=== PATIENT | male | born 1990 | race Caucasian/White ===

== ENCOUNTER 2017-02-15 22:57 | Emergency (ER) | payer OTHER ==
[2017-02-15 23:16] VITALS: BP 148/88
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
--- NOTE | 2017-02-16 13:25 | US ---
EXAM DATE: 02/15/17 PATIENT'S AGE: 26 Patient: AMBER HERNANDEZ Facility: [place], [place] Site . Site : 1990 Study: US Extremity Right [id number]/15/2017 11:59:17 PM Ordering Physician: Ramona Kang Final Report: INDICATION: Right lower leg pain and swelling. TECHNIQUE: Ultrasound venous duplex lower right extremity. Compression venous exam was performed using posey-scale, color Doppler, and spectral Doppler imaging. COMPARISON: None. FINDINGS: Sonographic imaging demonstrates the right common femoral, deep femoral, superficial femoral, popliteal, posterior tibial and greater saphenous and the contralateral left common femoral veins to be fully compressible with normal color Doppler blood flow. IMPRESSION: No sign of deep venous thrombosis. Dictated by Gilles Parkinson MD @ 02/16/2017 12:15:47 AM Dictated by: Gilles Parkinson MD @ 02/16/2017 00:15:53 (Electronic Signature) Report Signed by Proxy. ITZEL
== END 2017-02-16 01:44 | disposition home or self-care (01) ==
LOC: MW.ED 22:57
DX: S80.11XA Contusion of right lower leg, initial encounter (principal); F17.210 Nicotine dependence, cigarettes, uncomplicated; Z90.49 Acquired absence of other specified parts of digestive tract; V89.2XXA Person injured in unspecified motor-vehicle accident, traffic, initial encounter; Y92.410 Unspecified street and highway as the place of occurrence of the external cause
CPT/HCPCS: 73590-26-RT; 73590-RT; 93971-26-RT; 93971-RT; 99282; 99284-25

== ENCOUNTER 2017-03-07 19:10 | Emergency (ER) | payer OTHER ==
--- NOTE | 2017-03-07 19:55 | EDM.PDOC ---
ED HPI GENERAL MEDICAL PROBLEM - General Chief Complaint: Gastrointestinal Problem Stated Complaint: BLOOD IN STOOL Time Seen by Provider: 03/07/17 19:55 Source of Information: Reports: Patient History Limitations: Reports: No Limitations - History of Present Illness INITIAL COMMENTS - FREE TEXT/NARRATIVE: HISTORY AND PHYSICAL: History of present illness: Patient is a 26-year-old male who presents to the emergency room today with complaints of generalized abdominal pain, diarrhea, blood "streaks mixed" in with his stools 6 days. Patient denies any fever chills. Denies any chest pain or shortness of breath. Review of systems: As per history of present illness and below otherwise all systems reviewed and negative. Past medical history: As per history of present illness and as reviewed below otherwise noncontributory. Surgical history: As per history of present illness and as reviewed below otherwise noncontributory. Social history: No reported history of drug or alcohol abuse. Family history: As per history of present illness and as reviewed below otherwise noncontributory. Physical exam: HEENT: Atraumatic, normocephalic, pupils reactive, negative for conjunctival pallor or scleral icterus, mucous membranes moist, throat clear, neck supple, nontender, trachea midline. Lungs: Clear to auscultation, breath sounds equal bilaterally, chest nontender. Heart: S1S2, regular rate and rhythm Abdomen: Soft, nondistended, nontender. Negative for masses or hepatosplenomegaly. Negative for costovertebral tenderness. Pelvis: Stable nontender. Genitourinary: Deferred. Rectal: Exam was conducted with a visual display manager. No external hemorrhoids noted. Negative guiac screening Extremities: Atraumatic, negative for cords or calf pain. Neurovascular unremarkable. Neuro: Awake, alert, oriented. Cranial nerves II through XII unremarkable. Cerebellum unremarkable. Motor and sensory unremarkable throughout. Exam nonfocal. Diagnostics: CBC, CMP, Abdominal/Pelvis CT Therapeutics: [] Impression: Hemorrhoids, abdominal pain Definitive disposition and diagnosis as appropriate pending reevaluation and review of above. Duration: Day(s): (6) abdomen Pain Score (Numeric/FACES): 2 - Related Data Allergies Allergy/AdvReac Type Severity Reaction Status Date / Time No Known Allergies Allergy Verified 03/07/17 19:49 Home Meds: Home Meds . [No Known Home Meds] 02/15/17 [History] Past Medical History HEENT History: Reports: None Cardiovascular History: Reports: None Respiratory History: Reports: None Genitourinary History: Reports: None Musculoskeletal History: Reports: None Neurological History: Reports: None Psychiatric History: Reports: None Endocrine/Metabolic History: Reports: None Hematologic History: Reports: None Oncologic (Cancer) History: Reports: None Dermatologic History: Reports: None - Infectious Disease History Infectious Disease History: Reports: None - Past Surgical History GI Surgical History: Reports: Appendectomy Male Surgical History: Reports: None Social & Family History - Family History Family Medical History: Noncontributory - Tobacco Use Smoking Status *Q: Current Some Day Smoker Years of Tobacco use: 4 Packs/Tins Daily: 0.1 - Recreational Drug Use Recreational Drug Use: No ED ROS GENERAL - Review of Systems Review Of Systems: See Below ED EXAM, GI/ABD - Physical Exam Exam: See Below (See dictation) Course - Vital Signs Last Recorded V/S: Last Vital Signs Temp 36.5 C 03/07/17 19:10 Pulse 64 03/07/17 19:10 Resp 16 03/07/17 19:10 BP 142/85 H 03/07/17 19:10 Pulse Ox 98 03/07/17 19:10 - Orders/Labs/Meds Orders: Active Orders 24 hr Category Date Time Status Abdomen Pelvis wo Cont [CT] Stat Exams 03/07/17 19:54 Taken Labs: Laboratory Tests 03/07/17 03/07/17 Range/Units 20:00 20:00 WBC 6.77 (4.0-11.0) K/uL RBC 4.94 (4.50-5.90) M/uL Hgb 14.7 (13.0-17.0) g/dL Hct 43.9 (38.0-50.0) % MCV 88.9 (80.0-98.0) fL MCH 29.8 (27.0-32.0) pg MCHC 33.5 (31.0-37.0) g/dL RDW Std Deviation 43.0 (28.0-62.0) fl RDW Coeff of Iram 13 (11.0-15.0) % Plt Count 278 (150-400) K/uL MPV 10.00 (7.40-12.00) fL Neut % (Auto) 56.6 (48.0-80.0) % Lymph % (Auto) 26.4 (16.0-40.0) % Chase % (Auto) 11.1 (0.0-15.0) % Eos % (Auto) 4.9 (0.0-7.0) % Baso % (Auto) 1.0 (0.0-1.5) % Neut # (Auto) 3.8 (1.4-5.7) K/uL Lymph # (Auto) 1.8 (0.6-2.4) K/uL Chase # (Auto) 0.8 (0.0-0.8) K/uL Eos # (Auto) 0.3 (0.0-0.7) K/uL Baso # (Auto) 0.1 (0.0-0.1) K/uL Nucleated RBC % 0.0 /100WBC Nucleated RBCs # 0 K/uL Sodium 138 (136-146) mmol/L Potassium 4.3 (3.5-5.1) mmol/L Chloride 102 (98-110) mmol/L Carbon Dioxide 26 (21-31) mmol/L BUN 19 (6.0-23.0) mg/dL Creatinine 1.2 (0.6-1.5) mg/dL Est Cr Clr Drug Dosing 99.35 mL/min Estimated GFR (MDRD) > 60.0 ml/min Glucose 96 (60-110) mg/dL Calcium 9.4 (8.8-10.8) mg/dL Total Bilirubin 0.4 (0.1-1.5) mg/dL AST 35 (5-40) IU/L ALT 43 (8-54) IU/L Alkaline Phosphatase 51 (40-150) Total Protein 7.5 (6.0-8.0) g/dL Albumin 4.3 (3.5-5.0) g/dL Globulin 3.2 (2.0-3.5) g/dL Albumin/Globulin Ratio 1.3 (1.3-2.8) Departure - Departure Time of Disposition: 20:49 Disposition: Home, Self-Care 01 Condition: Good Clinical Impression: Hemorrhoids Qualifiers: Hemorrhoid type: unspecified Qualified Code(s): K64.9 - Unspecified hemorrhoids Abdominal pain Qualifiers: Abdominal location: generalized Qualified Code(s): R10.84 - Generalized abdominal pain - Discharge Information Referrals: PCP,None [Primary Care Provider] - Forms: ED Department Discharge Additional Instructions: The following information is given to patients seen in the emergency department who are being discharged to home. This information is to outline your options for follow-up care. We provide all patients seen in our emergency department with a follow-up referral. The need for follow-up, as well as the timing and circumstances, are variable depending upon the specifics of your emergency department visit. If you don't have a primary care physician on staff, we will provide you with a referral. We always advise you to contact your personal physician following an emergency department visit to inform them of the circumstance of the visit and for follow-up with them and/or the need for any referrals to a consulting specialist. The emergency department will also refer you to a specialist when appropriate. This referral assures that you have the opportunity for followup care with a specialist. All of these measure are taken in an effort to provide you with optimal care, which includes your followup. Under all circumstances we always encourage you to contact your private physician who remains a resource for coordinating your care. When calling for followup care, please make the office aware that this follow-up is from your recent emergency room visit. If for any reason you are refused follow-up, please contact the [facility] emergency department at and asked to speak to the emergency department charge nurse. [facility] [address] [place] [id number] 1. Please start taking Colace [id number] once daily. May continue using the rectal suppositories as needed. 2. Follow-up with your primary care provider in the next 1-2 days or the general surgeon as discussed. Return to the ED as needed as discussed. - My Orders Last 24 Hours: My Active Orders 03/07/17 19:54 Abdomen Pelvis wo Cont [CT] Stat - Assessment/Plan Last 24 Hours: My Active Orders 03/07/17 19:54 Abdomen Pelvis wo Cont [CT] Stat
[2017-03-07 20:36] LABS: CHLORIDE,CL 102 mmol/L (98-110); SODIUM,NA 138 mmol/L (136-146)
[2017-03-07 21:27] VITALS: BP 138/74
--- NOTE | 2017-03-08 18:50 | CT ---
EXAM DATE: 03/07/17 PATIENT'S AGE: 26 Patient: AMBER HERNANDEZ Facility: [place], [place] Site . Site : 1990 Study: CT Abdomen/Pelvis [id number]/4/2017 8:33:31 PM Ordering Physician: Doctor Callahan Final Report: INDICATION: Abdominal Pain, Diarrhea TECHNIQUE: CT abdomen and pelvis without contrast. COMPARISON: None FINDINGS: Lower chest: Unremarkable. Liver: Unremarkable. Spleen: Unremarkable. Pancreas: Unremarkable. Gallbladder and bile ducts: Unremarkable. Kidneys: Bilateral nonobstructing intrarenal calculi. 2.4 cm renal cyst within the upper pole of the right kidney. Adrenal glands: Unremarkable. GI tract: Unremarkable. Appendectomy changes. Vascular structures: Unremarkable. Lymph nodes: Unremarkable. Miscellaneous: Unremarkable. No free air or significant free fluid. Pelvic Organs: Unremarkable. Bones: Unremarkable for age. IMPRESSION: Bilateral nonobstructing intrarenal calculi. Dictated by Lambert Simons MD @ 03/07/2017 8:41:33 PM Dictated by: Lambert Simons MD @ 03/07/2017 20:41:41 (Electronic Signature) Report Signed by Proxy. [facility]EROmar
== END 2017-03-07 21:00 | disposition home or self-care (01) ==
LOC: MW.ED 19:10
DX: K64.9 Unspecified hemorrhoids (principal); F17.210 Nicotine dependence, cigarettes, uncomplicated; Z90.49 Acquired absence of other specified parts of digestive tract
CPT/HCPCS: 74176; 74176-26; 80053; 85025; 99283; 99284-25